=== PATIENT | female | born 1990 | race Caucasian/White ===

== ENCOUNTER 2017-05-18 06:09 | Day surgery (SDC) | payer OTHER ==
[~2017-05-18] VITALS: Ht 165.1 cm; Wt 95.3 kg
[~2017-05-18 06:09] MED LIST: BEYAZ 28 TABLE1 EACH PO; TYLENOL PM EX-1 EACH PO
[2017-05-18 07:05] VITALS: BP 157/86
[2017-05-18] MEDS ORDERED: HYDROCODON-ACE1 EAC7 PO (09:09)
[2017-05-18 10:05] VITALS: BP 146/73
[2017-05-18 11:00] VITALS: BP 143/74
== END 2017-05-18 11:00 | disposition home or self-care (01) ==
LOC: SDC 06:09
PROC: 0HBT0ZX Excision of Right Breast, Open Approach, Diagnostic (ICD-10-PCS; principal; 2017-05-18)
DX: D24.1 Benign neoplasm of right breast (principal); K21.9 Gastro-esophageal reflux disease without esophagitis; E28.2 Polycystic ovarian syndrome; Z87.891 Personal history of nicotine dependence
CPT/HCPCS: 88304; J0131; J0330; J0690; J1170; J1885; J2250; J2274; J2405; Q0175; S0020